=== PATIENT | male | born 1955 | race Hispanic/Latino ===

== ENCOUNTER 2018-09-12 14:27 | Emergency (ER) | payer SELFPAY ==
[2018-09-12 15:08] LABS: #Eosinphils 0.2 thou/uL (0.0-0.7); #Lymphocytes 1.2 thou/uL (1.20-3.40); #Monocytes 0.3 thou/uL (0.11-0.59); #Neutrophils 3.2 thou/uL (1.40-6.50); %Basophils 0.1 % (0.0-1.0); %Lymphocytes 24.3 % (21.0-51.0); %Monocytes 5.4 % (0.0-10.0); %Neutrophils 66.3 % (42.0-75.0); Hemoglobin 15.7 g/dL (14.0-18.0); Mean Corpuscular HGB CONC 35.3 g/dL (32.0-36.0); Mean Corpuscular Volume 90.8 fL (78.0-98.0); Mean Platelet Volume 8.8 fL (7.4-10.4); Platelet Count 172 thou/uL (130-400); Red Blood Cell (RBC) Count 4.91 mill/uL (4.70-6.10); White Blood Cell (WBC) Count 4.8 thou/uL (4.8-10.8)
[2018-09-12 15:18] LABS: Prothrombin Time 13.7 SEC (12.0-14.7)
[2018-09-12 15:24] LABS: ALT (SGPT) 16 U/L (8-55); AST (SGOT) 16 U/L (5-34); Albumin 4.1 g/dL (3.4-4.8); Alkaline Phosphatase 80 U/L (40-150); Anion Gap 11 mmol/L (10-20); BUN (Urea Nitrogen) 12 mg/dL (8.4-25.7); Bilirubin, Total 0.7 mg/dL (0.2-1.2); CK (CPK) 83 U/L (30-200); Calc. Creatinine Clearance 0 mL/min (70-130); Calcium 8.9 mg/dL (7.8-10.44); Carbon Dioxide 22 mmol/L (23-31); Chloride 111 mmol/L (98-107); Estimated GFR-MDRD Greater than 90; Globulin 3.2 g/dL (2.4-3.5); Glucose 99 mg/dL (80-115); Potassium 3.6 mmol/L (3.5-5.1); Protein, Total 7.3 g/dL (5.8-8.1); Sodium 140 mmol/L (136-145)
[2018-09-12 15:26] LABS: CKMB 1.6 ng/mL (0-6.6); Troponin I Less than 0.010 ng/mL (< 0.028)
[2018-09-12] MEDS ORDERED: Aspirin 325 MG TAB ONE (15:29)
--- NOTE | 2018-09-12 15:39 | CT ---
CT HEAD NONCONTRAST: Date: 09/12/18 INDICATION: Acute facial droop, with onset within the past 24 hours. FINDINGS: There is multifocal hypoattenuation of the bilateral cerebral hemispheres involving deep monson nuclei indicative of lacunar infarctions, age-indeterminate. There is no intracranial hemorrhage, mass effec t, midline shift, or ventriculomegaly. 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 IMPRESSION: 1. Age-indeterminate multifocal lacunar infarctions. This may be further assessed with dedicated bra in MRI. 2. No acute intracranial hemorrhage or mass effect. Notification of findings placed via telephone to ER physician, Rao Núñez, at 1506 hours on . CODE CR. POS: LICHA
--- NOTE | 2018-09-12 15:59 | RAD ---
FRONTAL VIEW CHEST: Date: 09/12/18 INDICATION: Facial droop. FINDINGS: There is elevation of right hemidiaphragm. Cardiac silhouette and pulmonary vasculature are prominent with interstitial opacities bilaterally. IMPRESSION: 1. No lobar consolidation. 2. Shallow depth of inspiration with prominence of cardiac silhouette and pulmonary vasculature. POS: CECIL
== END 2018-09-12 16:54 | disposition home or self-care (01) ==
LOC: ERS 14:27
DX: G51.0 Bell's palsy (principal)
CPT/HCPCS: 36415; 36416; 70450; 71045; 80053; 82140; 82550; 82553; 83690; 83880; 84443; 84484; 85025; 85610; 85730; 93005; 94760; 96360